=== PATIENT | female | born 1990 | race Hispanic/Latino ===

== ENCOUNTER 2019-05-22 17:47 | Emergency (ER) | payer OTHER ==
[2019-05-22] MEDS ORDERED: IRON325T2 PO (18:32)
[2019-05-22] MEDS ORDERED: PREN29TA4 PO (18:32)
[2019-05-22] MEDS ORDERED: VITA30004 PO (18:32)
[2019-05-22] MEDS ORDERED: MULTCAP PO (18:32)
--- NOTE | 2019-05-22 18:34 | REP ---
Clinical: Cough . Comparison: None . Findings: The mediastinum and cardiac silhouette are stable and within normal limits for portable technique. The lung roque are clear without acute consolidation, effusion, or pneumothorax. Skeletal structures are intact. Impression: No acute cardiopulmonary process appreciated. Electronically Signed by Christian Biswas MD 05/22/2019 06:26 P
[2019-05-22 18:35] LABS: BASO % 0.4 % (0.0-1.0); EOS # 0.1 10^3/uL (0.0-0.5); EOS % 0.7 % (0.0-3.0); HEMOGLOBIN 11.1 g/dl (12.0-15.5); LYMPH # 1.3 10^3/uL (1.5-5.0); LYMPH % 17.8 % (24.0-44.0); MEAN CORPUSCULAR HEMOGLOBIN 29.7 pg (27.0-33.0); MEAN CORPUSCULAR HGB CONC 33.6 g/dl (32.0-36.5); MEAN CORPUSCULAR VOLUME 88.2 fl (80.0-96.0); MONO # 0.5 10^3/uL (0.0-0.8); MONO % 6.5 % (0.0-5.0); NEUTROPHILS # 5.5 10^3/uL (1.5-8.5); NEUTROPHILS % 74.2 % (36.0-66.0); PLATELET COUNT, AUTOMATED 207 10^3/uL (150-450); RED BLOOD COUNT 3.74 10^6/uL (4.00-5.40); WHITE BLOOD COUNT 7.4 10^3/uL (4.0-10.0)
[2019-05-22 18:54] LABS: BLOOD UREA NITROGEN 11 MG/DL (7-18); CALCIUM LEVEL 8.5 MG/DL (8.5-10.1); CARBON DIOXIDE LEVEL 28 MEQ/L (21-32); CHLORIDE LEVEL 106 MEQ/L (98-107); CREATININE FOR GFR 0.62 MG/DL (0.55-1.30); GLOMERULAR FILTRATION RATE > 60.0 (>60); GLUCOSE, FASTING 84 MG/DL (70-100); POTASSIUM SERUM 3.5 MEQ/L (3.5-5.1); SODIUM LEVEL 138 MEQ/L (136-145)
[2019-05-22 18:58] LABS: INFLUENZA A AMPLIFICATION NEGATIVE (NEGATIVE); INFLUENZA B AMPLIFICATION NEGATIVE (NEGATIVE)
[2019-05-22] MEDS ORDERED: AUGMENTIN 875 MG TAB PO ONE (19:45)
[2019-05-22] MEDS ORDERED: AUGM500T34 PO (19:47)
[2019-05-22 19:55] VITALS: BP 121/72
== END 2019-05-22 20:10 | disposition home or self-care (01) ==
LOC: M ED 17:47 → EDBD 17:47 → M ED 20:10
DX: J02.9 Acute pharyngitis, unspecified (principal); H92.01 Otalgia, right ear; Z79.899 Other long term (current) drug therapy

== ENCOUNTER 2021-09-03 14:16 | Outpatient (CLI) | payer OTHER ==
[~2021-09-03] VITALS: Ht 157.5 cm; Wt 81.9 kg
[2021-09-03 13:30] VITALS: BP 115/58
[~2021-09-03 14:16] MED LIST: ACETAMINOPHEN TAB 650MG DOSE (2X325MG) PO ONE; ALBUTEROL SULFATE 2.5 MG/0.5 ML INH NEB SOLN INH PRN; AUGM500T34 PO; EPINEPHrine INJ 1 MG/ML 1ML AMP IM PRN; IRON SUCROSE 200 MG in NS 100 ML OVER 1 HR IV ONE; IRON325T2 PO; MULTCAP PO; NS 1,000 ML IV SCH; PREN29TA4 PO; VITA30004 PO; diphenhydrAMINE 50MG/ML VIAL (J1200) IV PRN; methylPREDNISolone 125MG 2ML VIAL IV PRN
[2021-09-03 15:35] VITALS: BP 118/72
== END 2021-09-03 15:50 | disposition home or self-care (01) ==
LOC: M INFU 14:16
PROVIDERS: ATTEND Nurse Practitioner Primary Care
DX: D50.8 Other iron deficiency anemias (principal)
CPT/HCPCS: 96365; J1756

== ENCOUNTER 2021-09-10 13:39 | Outpatient (CLI) | payer OTHER ==
[~2021-09-10] VITALS: Ht 157.5 cm; Wt 81.9 kg
[2021-09-10 14:24] VITALS: BP 138/62
[2021-09-10 15:18] VITALS: BP 110/74
== END 2021-09-10 15:15 | disposition home or self-care (01) ==
LOC: M INFU 13:39
PROVIDERS: ATTEND Nurse Practitioner Primary Care
DX: D50.8 Other iron deficiency anemias (principal)
CPT/HCPCS: 96365; J1756

== ENCOUNTER 2021-09-17 13:36 | Outpatient (CLI) | payer OTHER ==
[~2021-09-17] VITALS: Ht 157.5 cm; Wt 82.0 kg
[2021-09-17 14:06] VITALS: BP 122/58
[2021-09-17 15:17] VITALS: BP 123/60
== END 2021-09-17 15:15 | disposition home or self-care (01) ==
LOC: M INFU 13:36
PROVIDERS: ATTEND Nurse Practitioner Primary Care
DX: D50.8 Other iron deficiency anemias (principal)
CPT/HCPCS: 96365; J1756

== ENCOUNTER 2021-09-24 13:30 | Outpatient (CLI) | payer OTHER ==
[~2021-09-24] VITALS: Ht 160 cm; Wt 82.0 kg
[2021-09-24 13:30] VITALS: BP_SYST 110; BP_DIAS 57; BP_DIAS 62
== END 2021-09-24 15:10 | disposition home or self-care (01) ==
LOC: M INFU 13:30
PROVIDERS: ATTEND Nurse Practitioner Primary Care
DX: D50.8 Other iron deficiency anemias (principal)
CPT/HCPCS: 96365; J1756

== ENCOUNTER 2021-10-01 13:10 | Outpatient (CLI) | payer OTHER ==
[~2021-10-01] VITALS: Ht 160 cm; Wt 79.5 kg
[2021-10-01 13:10] VITALS: BP 102/55
[~2021-10-01 13:10] MED LIST changes: -ACETAMINOPHEN TAB 650MG DOSE (2X325MG) PO ONE; -IRON SUCROSE 200 MG in NS 100 ML OVER 1 HR IV ONE; -NS 1,000 ML IV SCH
[2021-10-01] MEDS ORDERED: NS 1,000 ML IV SCH (13:30)
[2021-10-01] MEDS ORDERED: ACETAMINOPHEN TAB 650MG DOSE (2X325MG) PO ONE (13:30)
[2021-10-01] MEDS ORDERED: IRON SUCROSE 200 MG in NS 100 ML OVER 1 HR IV ONE (13:30)
[2021-10-01 14:50] VITALS: BP 112/61
== END 2021-10-01 14:50 | disposition home or self-care (01) ==
LOC: M INFU 13:10
PROVIDERS: ATTEND Nurse Practitioner Primary Care
DX: D50.8 Other iron deficiency anemias (principal)
CPT/HCPCS: 96365; J1756

== ENCOUNTER 2022-03-25 10:09 | Outpatient (CLI) | payer OTHER ==
[~2022-03-25] VITALS: Ht 160 cm; Wt 80.0 kg
[~2022-03-25 10:09] MED LIST changes: +ACETAMINOPHEN TAB 650MG DOSE (2X325MG) PO ONE; -ALBUTEROL SULFATE 2.5 MG/0.5 ML INH NEB SOLN INH PRN; -EPINEPHrine INJ 1 MG/ML 1ML AMP IM PRN; +IRON SUCROSE 200 MG in NS 100 ML OVER 1 HR IV ONE; -diphenhydrAMINE 50MG/ML VIAL (J1200) IV PRN; -methylPREDNISolone 125MG 2ML VIAL IV PRN
[2022-03-25 10:30] VITALS: BP 110/63
[2022-03-25 12:17] VITALS: BP 138/78
== END 2022-03-25 12:15 | disposition home or self-care (01) ==
LOC: M INFU 10:09
PROVIDERS: ATTEND Family Medicine
DX: D50.8 Other iron deficiency anemias (principal)
CPT/HCPCS: 96365; J1756

== ENCOUNTER 2022-04-01 10:40 | Outpatient (CLI) | payer OTHER ==
[~2022-04-01] VITALS: Ht 160 cm; Wt 80.0 kg
[2022-04-01 11:01] VITALS: BP 90/57
[2022-04-01 12:30] VITALS: BP 106/66
== END 2022-04-01 12:30 ==
LOC: M INFU 10:40
PROVIDERS: ATTEND Family Medicine
DX: D50.9 Iron deficiency anemia, unspecified (principal)
CPT/HCPCS: 96365; J1756

== ENCOUNTER 2022-04-08 10:45 | Outpatient (CLI) | payer OTHER ==
[~2022-04-08] VITALS: Ht 160 cm; Wt 80.0 kg
[2022-04-08 10:46] VITALS: BP 112/65
[2022-04-08 12:01] VITALS: BP 112/64
== END 2022-04-08 12:00 | disposition home or self-care (01) ==
LOC: M INFU 10:45
PROVIDERS: ATTEND Family Medicine
DX: D50.9 Iron deficiency anemia, unspecified (principal)
CPT/HCPCS: 96365; J1756

== ENCOUNTER 2022-04-15 10:50 | Outpatient (CLI) | payer OTHER ==
[~2022-04-15] VITALS: Ht 160 cm; Wt 80.0 kg
[~2022-04-15 10:50] MED LIST changes: +NS 1,000 ML IV SCH
[2022-04-15 11:03] VITALS: BP 111/59
[2022-04-15 12:27] VITALS: BP 103/55
== END 2022-04-15 12:30 | disposition home or self-care (01) ==
LOC: M INFU 10:50
PROVIDERS: ATTEND Family Medicine
DX: D50.8 Other iron deficiency anemias (principal)
CPT/HCPCS: 96365; J1756

== ENCOUNTER → 2022-04-22 | Outpatient (CLI) | payer OTHER ==
[~2022-04-22] VITALS: Ht 160 cm; Wt 80.0 kg
[~2022-04-22] MED LIST changes: -NS 1,000 ML IV SCH
[2022-04-22 10:43] VITALS: BP 116/72
[2022-04-22 12:05] VITALS: BP 109/75
== END ==
LOC: M INFU 10:35
PROVIDERS: ATTEND Family Medicine
DX: D50.8 Other iron deficiency anemias (principal)
CPT/HCPCS: 96365; J1756

== ENCOUNTER 2022-09-25 11:47 | Emergency (ER) | payer OTHER ==
[~2022-09-25] VITALS: Ht 160 cm; Wt 79.3 kg
[~2022-09-25 11:47] MED LIST changes: -ACETAMINOPHEN TAB 650MG DOSE (2X325MG) PO ONE; -IRON SUCROSE 200 MG in NS 100 ML OVER 1 HR IV ONE
[2022-09-25 11:48] VITALS: TEMP 97.7
[2022-09-25] MEDS ORDERED: OMEP-173 PO (11:58)
[2022-09-25] MEDS ORDERED: ONDANSETRON 4MG 2ML VIAL IV ONE (12:10)
[2022-09-25 12:38] LABS: BASO % 0.7 % (0.0-1.0); EOS # 0.1 10^3/uL (0.0-0.5); EOS % 2.1 % (0.0-3.0); HEMATOCRIT 32.8 % (36.0-47.0); HEMOGLOBIN 10.9 g/dl (12.0-15.5); LYMPH # 1.8 10^3/uL (1.5-5.0); LYMPH % 41.9 % (24.0-44.0); MEAN CORPUSCULAR HEMOGLOBIN 28.8 pg (27.0-33.0); MEAN CORPUSCULAR HGB CONC 33.2 g/dl (32.0-36.5); MEAN CORPUSCULAR VOLUME 86.5 fl (80.0-96.0); MONO # 0.3 10^3/uL (0.0-0.8); MONO % 6.9 % (2.0-8.0); NEUTROPHILS % 48.2 % (36.0-66.0); PLATELET COUNT, AUTOMATED 220 10^3/uL (150-450); RED BLOOD COUNT 3.79 10^6/uL (4.00-5.40); WHITE BLOOD COUNT 4.2 10^3/uL (4.0-10.0)
[2022-09-25 13:02] LABS: LIPASE 40 U/L (12-53)
[2022-09-25 13:04] LABS: ALBUMIN 4.2 G/DL (3.2-5.2); ALKALINE PHOSPHATASE 66 U/L (46-116); ALT/SGPT 14 U/L (7.0-40); AST/SGOT 8 U/L (<34); BILIRUBIN,DIRECT 0.1 MG/DL (<0.4); BILIRUBIN,TOTAL 0.5 MG/DL (0.3-1.2); TOTAL PROTEIN 7.3 G/DL (5.7-8.2)
[2022-09-25 13:09] LABS: HCG, SERUM QUALITATIVE NEGATIVE (NEGATIVE)
[2022-09-25 13:12] LABS: RSV AMPLIFICATION NEGATIVE (NEGATIVE)
[2022-09-25] MEDS ORDERED: ISOVUE-370 76% 100ML VIAL As Ordered ONE (13:52)
[2022-09-25] MEDS: GASTROGRAFIN SOLUTION 30ML PO SCH ×2 (14:16→14:18)
[2022-09-25] MEDS ORDERED: KETOROLAC 30 MG/ML 1ML VIAL IV ONE (17:00)
[2022-09-25 17:12] VITALS: BP 106/59; O2SAT 99
== END 2022-09-25 17:27 | disposition home or self-care (01) ==
LOC: M ED 11:47
DX: K59.00 Constipation, unspecified (principal); S30.1XXA Contusion of abdominal wall, initial encounter; X58.XXXA Exposure to other specified factors, initial encounter; Y92.89 Other specified places as the place of occurrence of the external cause; Y93.89 Activity, other specified; Y99.8 Other external cause status; D64.9 Anemia, unspecified; Z98.84 Bariatric surgery status; Z79.899 Other long term (current) drug therapy
CPT/HCPCS: 74177; 80047; 80076; 81001; 83605; 83690; 84703; 85025; 87631; 93041; 96374; 96375; 99284; J1885; J2405; Q9963; Q9967

== ENCOUNTER → 2022-09-28 | Outpatient (CLI) | payer OTHER ==
[~2022-09-28] MED LIST changes: +GLUCAGON INJ 1MG VIAL As Ordered ONE; +ISOVUE-370 76% 100ML VIAL As Ordered ONE; +NEULUMEX 0.1% SUSPENSION 450ML BOTTLE (FORMERLY VOLUMEN) As Ordered ONE; +OMEP-173 PO
== END ==
LOC: M RAD 08:00
PROVIDERS: ATTEND Physician Assistant Medical
DX: D50.9 Iron deficiency anemia, unspecified (principal)

== ENCOUNTER 2022-11-16 10:08 | Day surgery (SDC) | payer OTHER ==
[~2022-11-16] VITALS: Ht 160 cm; Wt 78.0 kg
[~2022-11-16 10:08] MED LIST changes: -GLUCAGON INJ 1MG VIAL As Ordered ONE; -ISOVUE-370 76% 100ML VIAL As Ordered ONE; -NEULUMEX 0.1% SUSPENSION 450ML BOTTLE (FORMERLY VOLUMEN) As Ordered ONE; +NS 1,000 ML IV ONE
[2022-11-16] MEDS ORDERED: fentaNYL 100 MCG/2 ML INJECTION As Ordered ONE (10:50)
[2022-11-16] MEDS ORDERED: LIDOCAINE 2% 100MG/5ML SDV (FOR ANES.) As Ordered ONE (11:34)
[2022-11-16] MEDS ORDERED: propofoL 200 MG/20 ML VIAL As Ordered ONE (11:34)
[2022-11-16] MEDS ORDERED: GLYCOPYRROLATE INJ 0.2 MG/ML 2 ML VIAL As Ordered ONE (11:43)
[2022-11-16 11:56] VITALS: TEMP 97.2
[2022-11-16 12:18] VITALS: BP 106/74; O2SAT 100
== END 2022-11-16 12:51 | disposition home or self-care (01) ==
LOC: M OPP 10:08
PROVIDERS: ATTEND Internal Medicine Gastroenterology
DX: K64.8 Other hemorrhoids (principal); R19.5 Other fecal abnormalities; D50.9 Iron deficiency anemia, unspecified; Z98.84 Bariatric surgery status
CPT/HCPCS: 43239; 45378; 88305; J3010

== ENCOUNTER 2023-04-10 12:16 | Emergency (ER) | payer OTHER ==
[~2023-04-10] VITALS: Ht 160 cm; Wt 81.2 kg
[~2023-04-10 12:16] MED LIST changes: -NS 1,000 ML IV ONE
[2023-04-10] MEDS ORDERED: KETOROLAC 30 MG/ML 1ML VIAL IM ONE (13:20)
[2023-04-10 15:00] VITALS: BP 123/87; TEMP 98.6; O2SAT 100
== END 2023-04-10 15:02 | disposition home or self-care (01) ==
LOC: M ED 12:16
DX: S50.12XA Contusion of left forearm, initial encounter (principal); X58.XXXA Exposure to other specified factors, initial encounter; Y92.9 Unspecified place or not applicable; Y93.9 Activity, unspecified; Y99.9 Unspecified external cause status; R20.2 Paresthesia of skin; Z98.84 Bariatric surgery status; Z79.899 Other long term (current) drug therapy
CPT/HCPCS: 73080; 73090; 93971; 96372; 99283; J1885

== ENCOUNTER 2023-06-07 14:12 | Outpatient (CLI) | payer OTHER ==
[~2023-06-07] VITALS: Ht 160 cm; Wt 79.5 kg
[~2023-06-07 14:12] MED LIST changes: +ALBUTEROL SULFATE 2.5MG/0.5ML INH NEB SOLN INH PRN; +EPINEPHrine INJ 1 MG/ML 1ML AMP IM PRN; +diphenhydrAMINE 50MG/ML VIAL IV PRN; +methylPREDNISolone 125MG 2ML VIAL IV PRN
[2023-06-07 14:50] VITALS: BP 109/53; O2SAT 96
[2023-06-07] MEDS ORDERED: NS 1,000 ML IV SCH (15:00)
[2023-06-07] MEDS: diphenhydrAMINE 25MG CAP PO ONE (15:00)
[2023-06-07] MEDS: ACETAMINOPHEN TAB 650MG DOSE (2X325MG) PO ONE (15:00)
[2023-06-07] MEDS: FERRIC CARBOXYMALTOSE INJ 750 MG in NS 250 ML (>50kg) IV ONE (15:01)
[2023-06-07 16:17] VITALS: BP 96/56; O2SAT 100
== END 2023-06-07 16:20 | disposition home or self-care (01) ==
LOC: M INFU 14:12
PROVIDERS: ATTEND Nurse Practitioner Family
DX: D50.9 Iron deficiency anemia, unspecified (principal)
CPT/HCPCS: 96365; J1439

== ENCOUNTER 2023-06-14 15:00 | Outpatient (CLI) | payer OTHER ==
[~2023-06-14] VITALS: Ht 160 cm; Wt 80.0 kg
[~2023-06-14 15:00] MED LIST changes: +ACETAMINOPHEN TAB 650MG DOSE (2X325MG) PO ONE; +NS 1,000 ML IV SCH; +diphenhydrAMINE 25MG CAP PO ONE
[2023-06-14 15:10] VITALS: BP 120/58; O2SAT 98
[2023-06-14] MEDS: FERRIC CARBOXYMALTOSE INJ 750 MG in NS 250 ML (>50kg) IV ONE (15:28)
[2023-06-14 16:20] VITALS: BP 109/55; O2SAT 100
== END 2023-06-14 16:30 | disposition home or self-care (01) ==
LOC: M INFU 15:00
PROVIDERS: ATTEND Nurse Practitioner Family
DX: D50.9 Iron deficiency anemia, unspecified (principal)
CPT/HCPCS: 96365; J1439

== ENCOUNTER → 2023-09-22 | Outpatient (CLI) | payer OTHER ==
[~2023-09-22] MED LIST changes: -ACETAMINOPHEN TAB 650MG DOSE (2X325MG) PO ONE; -ALBUTEROL SULFATE 2.5MG/0.5ML INH NEB SOLN INH PRN; +E-Z-GAS II EFFERVESCENT PACKET (SODIUM BICARB./CITRIC ACID/SIMETHICONE) As Ordered ONE; +E-Z-HD 98% w/w 340GM SUSP BTL As Ordered ONE; +E-Z-PAQUE 96% w/w SUSP 176GM BTL As Ordered ONE; -EPINEPHrine INJ 1 MG/ML 1ML AMP IM PRN; -NS 1,000 ML IV SCH; -diphenhydrAMINE 25MG CAP PO ONE; -diphenhydrAMINE 50MG/ML VIAL IV PRN; -methylPREDNISolone 125MG 2ML VIAL IV PRN
== END ==
LOC: M RAD 09:59
PROVIDERS: ATTEND Physician Assistant Medical
DX: K21.9 Gastro-esophageal reflux disease without esophagitis (principal)